=== PATIENT | male | born 1975 | race Caucasian/White ===

== ENCOUNTER 2019-02-27 14:53 | Emergency (ER) | payer BC, OTHER ==
[~2019-02-27] VITALS: Ht 180.3 cm; Wt 90.0 kg
[2019-02-27 14:59] VITALS: BP 146/88; PULSE 110; RESP 20; Ht 180.3 cm; Wt 90.0 kg
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
== END 2019-02-27 18:08 | disposition home or self-care (01) ==
LOC: E/R 14:53
DX: F10.10 Alcohol abuse, uncomplicated (principal); R40.2142 Coma scale, eyes open, spontaneous, at arrival to emergency department; R40.2362 Coma scale, best motor response, obeys commands, at arrival to emergency department; R40.2242 Coma scale, best verbal response, confused conversation, at arrival to emergency department; E86.0 Dehydration; D64.9 Anemia, unspecified; R74.8 Abnormal levels of other serum enzymes
CPT/HCPCS: 36415; 80053; 80307; 82550; 82962; 85025; 99283

== ENCOUNTER 2019-02-28 16:28 | Emergency (ER) | payer BC, OTHER ==
[2019-03-01] MEDS ORDERED: BUPR150T6 PO (15:49)
[2019-03-01] MEDS ORDERED: GABA-528 PO (15:50)
[2019-03-01] MEDS ORDERED: QUET200T PO (15:50)
[2019-03-01] MEDS ORDERED: CLON0.5T14 PO (15:51)
== END 2019-02-28 17:55 | disposition left against medical advice (07) ==
LOC: E/R 16:28
DX: Z53.21 Procedure and treatment not carried out due to patient leaving prior to being seen by health care provider (principal)

== ENCOUNTER 2019-03-01 14:38 | Inpatient (IN) | payer BC, OTHER ==
[~2019-03-01] VITALS: Ht 188 cm; Wt 87.0 kg
[2019-03-01] VITALS (7 sets, daily range): BP systolic 137; BP diastolic 77; PULSE 135–171; RESP 20; Ht 188 cm; Wt 87.0 kg
[2019-03-01] MEDS ORDERED: SOD CHLORIDE 0.9% 1,000 ML IV STA (14:54)
[2019-03-01] MEDS ORDERED: FOLIC ACID 1 MG TAB PO ONE (15:00)
[2019-03-01] MEDS ORDERED: DIAZEPAM 5 MG/ML SYG IV ONE ×3 (15:00→18:00)
[2019-03-01] MEDS ORDERED: DEXTROSE 5%-0.45% NACL 500 ML BAG IV ONE (15:00)
[2019-03-01] MEDS ORDERED: THIAMINE 100 MG TAB PO ONE (15:00)
[2019-03-01] MEDS ORDERED: LORAZEPAM 2 MG INJ ONE (15:27)
[2019-03-01] MEDS ORDERED: LORAZEPAM 2 MG INJ IM ONE (15:30)
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
[2019-03-01] MEDS ORDERED: BUPR150T6 PO (15:49)
[2019-03-01] MEDS ORDERED: QUET200T PO (15:50)
[2019-03-01] MEDS ORDERED: GABA-528 PO (15:50)
[2019-03-01] MEDS ORDERED: CLON0.5T14 PO (15:51)
[2019-03-01] MEDS ORDERED: ACETAMINOPHEN 325 MG TAB PO PRN (18:00)
[2019-03-01] MEDS ORDERED: ONDANSETRON 4 MG INJ IV PRN (18:00)
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
[2019-03-01] MEDS ORDERED: NACL 0.9% 3 ML SYG IV SCH (18:30)
[2019-03-01] MEDS ORDERED: HYDROCODONE/APAP (5/325) TAB PO PRN (18:30)
[2019-03-01] MEDS ORDERED: LORAZEPAM 2 MG INJ IV PRN (18:30)
[2019-03-01] MEDS: METHYLPHENIDATE 5 MG TAB PO SCH (20:34)
[2019-03-01] MEDS: BUPROPION (XL) 150 MG TAB PO SCH ×2 (20:34→21:00)
[2019-03-01] MEDS: CHLORDIAZEPOXIDE 25 MG CAP PO SCH ×2 (21:00→23:04)
[2019-03-01] MEDS ORDERED: QUETIAPINE 100 MG TAB PO SCH (21:00)
[2019-03-01] MEDS ORDERED: BUPROPION (XL) 150 MG TAB PO SCH (21:00)
[2019-03-01] MEDS: THIAMINE 100 MG TAB PO SCH (22:36)
[2019-03-02] VITALS: PULSE 144
[2019-03-02] MEDS ORDERED: LORAZEPAM 2 MG INJ IV ONE (00:30)
[2019-03-02] MEDS ORDERED: DIAZEPAM 5 MG/ML SYG IV ONE (02:00)
[2019-03-02] MEDS ORDERED: METOPROLOL 5 MG INJ IV ONE (02:30)
[2019-03-02] MEDS ORDERED: PANTOPRAZOLE (EC) 40 MG TAB PO SCH (06:00)
[2019-03-02] MEDS ORDERED: MULTIVITAMINS THERAPEUTIC TAB PO SCH (09:00)
[2019-03-02] MEDS: CHLORDIAZEPOXIDE 25 MG CAP PO SCH (09:23)
[2019-03-02] MEDS: BUPROPION (XL) 150 MG TAB PO SCH (09:23)
[2019-03-02] MEDS: THIAMINE 100 MG TAB PO SCH (09:23)
[2019-03-02] MEDS: METHYLPHENIDATE 5 MG TAB PO SCH (10:44)
[2019-03-02 11:53] VITALS: BP 129/97; PULSE 104; RESP 20
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
[2019-03-02] MEDS ORDERED: BUPROPION (SR) 150 MG TAB PO SCH (13:00)
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
== END 2019-03-02 12:43 | disposition left against medical advice (07) | DRG 894 ==
LOC: E/R 14:38 → 6WM 17:47 → SUATTDRO 17:53 → 6WM 21:45
PROVIDERS: ADMIT Internal Medicine; ATTEND Internal Medicine
DX: F10.239 Alcohol dependence with withdrawal, unspecified (principal); E86.0 Dehydration; D64.9 Anemia, unspecified; F32.9 Major depressive disorder, single episode, unspecified
CPT/HCPCS: 36415; 70450; 80053; 80307; 83036; 83690; 85025; 87081; 96361; 96372; 96374; 96375; J2060; J3360; J7030